=== PATIENT | female | born 2000 | race Caucasian/White ===

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

== ENCOUNTER 2022-03-22 09:39 | Outpatient (CLI) | payer MEDICAID ==
--- NOTE | 2022-03-22 16:56 | Ultrasound Report ---
PROCEDURE: Head or Neck Soft Tissue INDICATIONS: PALPABLE NODULE TECHNIQUE: Real-time scanning was performed of the thyroid gland, with image documentation. COMPARISON: None FINDINGS: Right: Thyroid lobe measures 1.7 x 2.1 x 6.4 cm, and is homogeneous in echotexture. Left: Thyroid lobe measures 1.3 x 2.0 x 4.3 cm, and is homogenous in echotexture. Isthmus: 0.4 mm thick. Within the right neck, there are 2 mildly prominent lymph nodes. Largest of these measures 23 mm x 29 mm x 10 mm. Smaller measures 11 mm x 5 mm x 6 mm. IMPRESSION: 1. No evidence of thyroid nodule. 2. Right cervical adenopathy. Initial further assessment with neck CT with intravenous contrast is re commended. Reviewed by: Halie Delgado MD on 03/22/2022 4:55 PM PDT Approved by: Halie Delgado MD on 03/22/2022 4:55 PM PDT Station ID: [id number]
== END 2022-03-22 09:40 | disposition home or self-care (01) ==
LOC: DI 09:39
PROVIDERS: ATTEND Nurse Practitioner Family
DX: E04.1 Nontoxic single thyroid nodule (principal); R59.0 Localized enlarged lymph nodes

== ENCOUNTER 2022-10-21 14:53 | Outpatient (CLI) | payer MEDICAID ==
[2022-10-21 15:15] LABS: BASOPHILS % (AUTO) 0.4 %; EOSINOPHILS # (AUTO) 0.1 10^3/uL (0.0-0.7); EOSINOPHILS % (AUTO) 0.9 %; HCT - HEMATOCRIT 45.7 % (37.0-47.0); HGB - HEMOGLOBIN 14.5 g/dL (12.0-16.0); LYMPHOCYTES # (AUTO) 2.6 10^3/uL (1.5-3.5); LYMPHOCYTES % (AUTO) 28.7 %; MEAN CORPUSCULAR HEMOGLOBIN 27.1 pg (27.0-31.0); MEAN CORPUSCULAR HGB CONC 31.7 g/dL (32.0-36.0); MEAN CORPUSCULAR VOLUME 85.3 fL (81.0-99.0); MONOCYTES # (AUTO) 0.5 10^3/uL (0.0-1.0); NEUTROPHILS # (AUTO) 5.7 10^3/uL (1.5-6.6); NEUTROPHILS % (AUTO) 63.8 %; PLT - PLATELET COUNT 294 10^3/uL (130-450); RED BLOOD COUNT 5.36 10^6/uL (4.20-5.40); RED CELL DISTRIBUTION WIDTH 12.2 % (12.0-15.0)
[2022-10-21 15:53] LABS: THYROID STIMULATING HORMONE 0.31 uIU/mL (0.34-5.60)
[2022-10-21 15:54] LABS: FREE T3 3.55 pg/mL (2.5-3.9)
[2022-10-21 15:55] LABS: FREE T4 (FREE THYROXINE) 0.83 ng/dL (0.58-1.64)
[2022-10-21 21:34] LABS: ESTIMATED AVERAGE GLUCOSE 123 mg/dL (70-100); HEMOGLOBIN A1c% 5.9 % (4.27-6.07)
== END 2022-10-21 14:54 | disposition home or self-care (01) ==
LOC: LAB 14:53
PROVIDERS: ATTEND Nurse Practitioner Family
DX: F32.9 Major depressive disorder, single episode, unspecified (principal); F41.1 Generalized anxiety disorder; R59.0 Localized enlarged lymph nodes
CPT/HCPCS: 36415; 83036; 84439; 84443; 84481; 85025

== ENCOUNTER 2023-01-22 11:52 | Outpatient (CLI) | payer MEDICAID ==
[2023-01-22 12:46] LABS: THYROID STIMULATING HORMONE 0.62 uIU/mL (0.34-5.60)
[2023-01-22 12:48] LABS: FREE T3 3.45 pg/mL (2.5-3.9); FREE T4 (FREE THYROXINE) 0.86 ng/dL (0.58-1.64)
== END 2023-01-22 11:53 | disposition home or self-care (01) ==
LOC: LAB 11:52
PROVIDERS: ATTEND Nurse Practitioner Family
DX: R89.8 Other abnormal findings in specimens from other organs, systems and tissues (principal)
CPT/HCPCS: 36415; 84439; 84443; 84481

== ENCOUNTER 2023-07-08 16:03 | Outpatient (CLI) | payer OTHER ==
[2023-07-08 16:28] LABS: BASOPHILS % (AUTO) 0.3 %; EOSINOPHILS # (AUTO) 0.1 10^3/uL (0.0-0.7); EOSINOPHILS % (AUTO) 0.8 %; HCT - HEMATOCRIT 43.5 % (37.0-47.0); HGB - HEMOGLOBIN 13.8 g/dL (12.0-16.0); LYMPHOCYTES % (AUTO) 24.4 %; MEAN CORPUSCULAR HEMOGLOBIN 26.6 pg (27.0-31.0); MEAN CORPUSCULAR HGB CONC 31.7 g/dL (32.0-36.0); MEAN PLATELET VOLUME 10.2 fL (7.9-10.8); MONOCYTES # (AUTO) 0.8 10^3/uL (0.0-1.0); NEUTROPHILS # (AUTO) 8.5 10^3/uL (1.5-6.6); NEUTROPHILS % (AUTO) 68.3 %; PLT - PLATELET COUNT 313 10^3/uL (130-450); RED BLOOD COUNT 5.18 10^6/uL (4.20-5.40); RED CELL DISTRIBUTION WIDTH 12.6 % (12.0-15.0); WHITE BLOOD COUNT 12.5 x10^3/uL (4.8-10.8)
[2023-07-08 16:55] LABS: ALBUMIN 4.4 g/dL (3.2-5.5); ALBUMIN/GLOBULIN RATIO 1.6 (1.0-2.2); BILIRUBIN,TOTAL 0.2 mg/dL (0.2-1.0); CALCIUM 9.8 mg/dL (8.5-10.3); CREATININE 0.9 mg/dL (0.6-1.3); POTASSIUM 3.9 mmol/L (3.5-4.5); TOTAL PROTEIN 7.2 g/dL (6.4-8.9)
[2023-07-08 17:08] LABS: THYROID STIMULATING HORMONE 0.57 uIU/mL (0.34-5.60)
[2023-07-08 18:39] LABS: ESTIMATED AVERAGE GLUCOSE 114 mg/dL (70-100); HEMOGLOBIN A1c% 5.6 % (4.27-6.07)
== END 2023-07-08 16:04 | disposition home or self-care (01) ==
LOC: LAB 16:03
PROVIDERS: ATTEND Nurse Practitioner Obstetrics & Gynecology
DX: N92.0 Excessive and frequent menstruation with regular cycle (principal); E66.9 Obesity, unspecified
CPT/HCPCS: 36415; 80053; 83036; 84439; 84443; 85025

== ENCOUNTER 2023-07-20 15:08 | Outpatient (CLI) | payer OTHER ==
--- NOTE | 2023-07-20 20:54 | Ultrasound Report ---
PROCEDURE: Pelvic w/Transvaginal INDICATIONS: EXCESSIVE MENSTRUATION TECHNIQUE: Real-time scanning was performed of the pelvic organs, with image documentation. Additional endovagi nal scanning was necessary due to incomplete visualization of the adnexal and endometrial structures by transabdominal scanning. COMPARISON: None. FINDINGS: Limited transabdominal exam as patient was not prepped. Uterus: Uterus is anteverted and normal in size at 6.9 x 3.4 x 4.9 cm. (Volume 59.8 mL) The myometr ium is heterogeneous. The endometrium measures 9.5 mm in combined thickness. Cervix and vagina are normal. Ovaries: The right ovary measures 1.9 x 1.9 x 1.4 cm, with a calculated ovarian volume of 2.60 cc. Evaluation is limited secondary to bowel gas. The left ovary measures 3 x 2.4 x 2.3 cm, with a calcul ated ovarian volume of 8.67 cc. The ovaries have a normal sonographic appearance. Greater than 12 f ollicles can be seen in the left ovary. No adnexal masses are seen. No cystic lesions measuring grea ter than 3 cm. Other: No pathologic free abdominal or pelvic fluid. IMPRESSION: Limited transabdominal exam as patient was not prepped. 1. Uterus is normal in size with no fibroids. Endometrial thickness measures 9.5 mm. 2. Right ovary is not well seen secondary to bowel gas. 3. Greater than 12 follicles can be seen in the left ovary, which can be seen in the clinical setting of PCOS. Reviewed by: Kenneth Cevallos MD on 07/20/2023 8:53 PM PST Approved by: Kenneth Cevallos MD on 07/20/2023 8:53 PM PST Station ID: [id number]
== END 2023-07-20 15:09 | disposition home or self-care (01) ==
LOC: DI 15:08
PROVIDERS: ATTEND Nurse Practitioner Obstetrics & Gynecology
DX: N92.6 Irregular menstruation, unspecified (principal)

== ENCOUNTER 2023-10-04 08:00 | Outpatient (CLI) | payer OTHER ==
--- NOTE | 2023-10-04 19:58 | XRAY Report ---
PROCEDURE: Chest 2V INDICATIONS: ACUTE COUGH TECHNIQUE: 2 views of the chest were acquired. COMPARISON: Chest radiograph on May 20, 2017. FINDINGS: Surgical changes and devices: None. Lungs and pleura: No pleural effusions or pneumothorax. Mild bilateral perihilar bronchial wall thic kening. No focal pulmonary consolidation. Mediastinum: Mediastinal contours appear normal. Heart size is normal. Bones and chest wall: No suspicious bony lesions. Overlying soft tissues appear unremarkable. IMPRESSION: Mild bilateral perihilar bronchial wall thickening suggestive of reactive airways disease and/or jackie l pneumonia. No focal pulmonary consolidation. Reviewed by: Kenneth Cevallos MD on 10/04/2023 7:57 PM PST Approved by: Kenneth Cevallos MD on 10/04/2023 7:57 PM PST Station ID: [id number]
== END 2023-10-04 23:59 | disposition home or self-care (01) ==
LOC: DI.S 08:00
PROVIDERS: ATTEND Physician Assistant Medical
DX: R05.1 Acute cough (principal)

== ENCOUNTER 2023-10-13 16:38 | Outpatient (CLI) | payer OTHER ==
[2023-10-13 23:18] LABS: CHLAMYDIA TRACHOMATIS DNA NEGATIVE (NEGATIVE); NEISSERIA GONORRHOEAE DNA NEGATIVE (NEGATIVE); TRICHOMONAS VAGINALIS DNA NEGATIVE (NEGATIVE)
[2023-10-14 04:09] LABS: HIV SCREEN 4TH GENERATION Non Reactive (Non Reactive)
[2023-10-14 05:12] LABS: RPR Non Reactive (Non Reactive)
== END 2023-10-13 16:39 | disposition home or self-care (01) ==
LOC: LAB 16:38
PROVIDERS: ATTEND Physician Assistant
DX: Z11.3 Encounter for screening for infections with a predominantly sexual mode of transmission (principal)
CPT/HCPCS: 36415; 86592; 87389; 87491; 87591; 87661